=== PATIENT | female | born 1990 | race African-American/Black ===

== ENCOUNTER 2016-09-18 08:01 | Emergency (ER) | payer OTHER ==
[2016-09-18 08:30] VITALS: BP 127/68; PULSE 83; TEMP 98.4; BMI 25.1
--- NOTE | 2016-09-18 09:30 | PDOC ---
History of Present Illness - General Chief Complaint: Injury Stated Complaint: RT ANKLE PAIN Time Seen by Provider: 09/18/16 08:36 History Source: Patient Exam Limitations: No Limitations - History of Present Illness Initial Comments: 09/18/16 15:00 26 yr female injured her ankle right this am missing step walking down stairs. 09/18/16 18:11 Occurred: reports: this morning Past History - Past Medical History Allergies/Adverse Reactions: Allergies Allergy/AdvReac Type Severity Reaction Status Date / Time No Known Allergies Allergy Verified 09/18/16 08:07 Home Medications: Ambulatory Orders NK [No Known Home Medication] 09/18/16 Anemia: Yes (2006) Asthma: No Cancer: No Cardiac Disorders: No CVA: No COPD: No CHF: No Dementia: No Diabetes: No GI Disorders: No Disorders: No HTN: No Hypercholesterolemia: No Liver Disease: No Seizures: No Thyroid Disease: No - Surgical History Abdominal Surgery: No Appendectomy: No Cardiac Surgery: No Cholecystectomy: No Lung Surgery: No Neurologic Surgery: No Orthopedic Surgery: No - Reproductive History (#): 0 Para: 0 Cervical CA: No Dysfunctional Uterine Bleeding: No Ectopic : No Endometrial CA: No Polycystic Ovaries: No Therapeutic (s) & number: No Tubal Ligation: No - Psycho/Social/Smoking Cessation Hx Anxiety: Yes Suicidal Ideation: No Smoking Status: No Smoking History: Never smoked Have you smoked in the past 12 months: No Number of Cigarettes Smoked Daily: 0 Information on smoking cessation initiated: No Hx Alcohol Use: No Drug/Substance Use Hx: No Substance Use Type: None Hx Substance Use Treatment: No Review of Systems - Review of Systems Able to Perform ROS?: Yes Is the patient limited Marshallese proficient: No Constitutional: No: Symptoms Reported HEENTM: No: Symptoms Reported Respiratory: No: Symptoms reported Cardiac (ROS): No: Symptoms Reported Musculoskeletal: Yes: Symptoms Reported *Physical Exam - Vital Signs Last Vital Signs Temp Pulse Resp BP Pulse Ox 98.4 F 83 18 127/68 100 09/18/16 08:07 09/18/16 08:07 09/18/16 08:07 09/18/16 08:07 09/18/16 08:07 - Physical Exam General Appearance: Yes: Nourished, Appropriately Dressed HEENT: positive: EOMI, DOUGLAS Extremity: positive: Normal Capillary Refill, Swelling (lateral maleolus right ) . negative: Delayed Capillary Refill Integumentary: positive: Normal Color, Dry, Warm Neurologic: positive: Fully Oriented, Alert, Normal Mood/Affect, Normal Response , Motor Strength 5/5 Procedures - Splinting Pre-Made Type: aircast (crutches) ED Treatment Course - ADDITIONAL ORDERS Additional order review: Laboratory Results 09/18/16 08:12 Urine HCG, Qual Negative - RADIOLOGY Radiology Studies Ordered: Category Date Time Status ANKLE & FOOT-RIGHT* [RAD] Stat Radiology 09/18/16 08:41 Taken Medical Decision Making - Medical Decision Making 09/18/16 15:00 26 yr female right ankle injury this am will xray to r/o fracture 09/18/16 18:12 xray is negative will place air cast and crutches pt aware to non weight bear follow with the orthopedist as planned pt understands the dc inst. 09/18/16 18:14 *DC/Admit/Observation/Transfer Diagnosis at time of Disposition: Ankle sprain Qualifiers: Encounter type: initial encounter Involved ligament of ankle: other ligament Laterality: right Qualified Code(s): S93.491A - Sprain of other ligament of right ankle, initial encounter - Discharge Dispostion Disposition: HOME Condition at time of disposition: Good - Referrals Referrals: Kin Fall MD [Primary Care Provider] - Artem May MD [Staff Physician] - - Patient Instructions Additional Instructions: elevate and apply ice every 2-3hrs for 15 minutes while awake for the next 2 days take motrin 600-800mg every 8hrs for pain use the crutches and air cast splint Do not weight bear follow with the orthopedist this week for follow up - Post Discharge Activity Work/School Note: Back to Work
== END 2016-09-18 09:32 | disposition home or self-care (01) ==
LOC: JER 08:01 → JERFT 08:01
PROC: 2W3LX1Z Immobilization of Right Lower Extremity using Splint (ICD-10-PCS; principal; 2016-09-18)
DX: S93.491A Sprain of other ligament of right ankle, initial encounter (principal); W10.8XXA Fall (on) (from) other stairs and steps, initial encounter; Y93.89 Activity, other specified; Y92.89 Other specified places as the place of occurrence of the external cause
CPT/HCPCS: 73610-TC-RT; 73630-TC-RT; 84703; 99281-25